=== PATIENT | female | born 1970 | race Caucasian/White ===

== ENCOUNTER → 2020-08-24 10:58 | Outpatient (BNVA) | payer BC, SELFPAY | PROVIDERS: Family Provider Family Medicine; Visit Provider Family Medicine | DX: Z20.828 Contact with and (suspected) exposure to other viral communicable diseases (principal) | CPT/HCPCS: 87635 ==

== ENCOUNTER 2020-10-29 08:16 | Outpatient (CLI) | payer BC, SELFPAY ==
--- NOTE | 2020-10-29 08:21 | MM_ITS ---
WS: [id number] BILATERAL DIGITAL SCREENING MAMMOGRAPHY WITH CAD CLINICAL INFORMATION: SCREENING HISTORY: Screening mammogram. No current complaints. COMPARISON: [id number] TECHNIQUE: Bilateral CC and MLO views. FINDINGS: The breasts are composed of heterogeneous fibroglandular density tissue, which can limit the detectio n of small underlying mass lesions. No suspicious mass, asymmetry, calcifications, or architectural d istortion. No evidence of malignancy. Punctate and lucent centered calcifications. MM/[place] [id number] IMPRESSION: BI-RADS: 2-Benign FOLLOW UP: 1 Year Follow-up Recommend return to annual screening mammography.
== END 2020-10-29 08:17 | disposition home or self-care (01) ==
LOC: RADSHAW 08:18
PROVIDERS: PCP Family Medicine; Visit Provider Family Medicine
DX: Z12.31 Encounter for screening mammogram for malignant neoplasm of breast (principal)
CPT/HCPCS: 77067

== ENCOUNTER 2021-11-02 08:19 | Outpatient (CLI) | payer BC, SELFPAY ==
--- NOTE | 2021-11-02 08:28 | MM_ITS ---
WS: [id number] SCREENING DIGITAL MAMMOGRAM WITH CAD HISTORY: SCREENING COMPARISON: 10/27/2020, 09/11/2019 and 09/04/2018 Bilateral CC and MLO views submitted. Computer aided detection analyzed. Breast composition: The breasts are heterogeneously dense, which may obscure small masses. Asymmetry in the medial RIGHT breast and a posterior location measures 8 mm. This may be the soft tis yuval above the nipple line on the lateral projection. There is also benign calcification in the centra l RIGHT breast. MM/[place] [id number] IMPRESSION: BI-RADS: 0-Incomplete: Need additional imaging evaluation FOLLOW UP: Need Additional Imaging RIGHT breast: Spot compression views (CC and MLO). True ML. Ultrasound to follo w if abnormality persists.
== END 2021-11-02 08:20 | disposition home or self-care (01) ==
PROVIDERS: PCP Family Medicine; Visit Provider Family Medicine
DX: Z12.31 Encounter for screening mammogram for malignant neoplasm of breast (principal)
CPT/HCPCS: 77067

== ENCOUNTER 2021-11-29 11:47 | Outpatient (CLI) | payer BC, SELFPAY ==
--- NOTE | 2021-11-29 11:55 | US_ITS ---
WS: [id number] ADDITIONAL VIEWS RIGHT BREAST RIGHT breast ultrasound, limited HISTORY: ABNORMAL MAMMO COMPARISON: 11/02/2021, 10/29/2020, 09/11/2019 and 09/04/2018 Compression views right CC and MLO projection. True ML also submitted. The asymmetry in the medial RI GHT breast persists with additional views. Asymmetry measures 10 x 5 mm in the mid to posterior depth of the medial RIGHT breast. This is not definitely seen on the lateral projection but may be in the superior half of the breast. RIGHT breast ultrasound, limited. Ultrasound is directed to the medial RIGHT breast. From 12-3 o'clock there is no abnormality identifi ed. There is mildly dense fibroglandular tissue. No shadowing. No solid or cystic changes. US/US breast RT limited* [id number] IMPRESSION: BI-RADS: 3-Probably Benign FOLLOW-UP: 6 Month Follow-up New asymmetry seen in the medial RIGHT breast only on the CC projection. No abn ormality identified by ultrasound or the additional mammographic views. As this is only seen on one view this may be superimposed fibroglandular tissue. Recom mend 6 month diagnostic RIGHT mammogram follow-up and possible ultrasound.
== END 2021-11-29 11:48 | disposition home or self-care (01) ==
LOC: RADSHAW 11:50
PROVIDERS: PCP Family Medicine; Visit Provider Family Medicine
DX: R92.8 Other abnormal and inconclusive findings on diagnostic imaging of breast (principal); N64.89 Other specified disorders of breast
CPT/HCPCS: 76642; 77065

== ENCOUNTER → 2022-03-17 09:32 | Outpatient (BNVA) | payer OTHER, SELFPAY | PROVIDERS: PCP Family Medicine; Visit Provider Family Medicine | DX: D64.9 Anemia, unspecified (principal); E78.5 Hyperlipidemia, unspecified; N19 Unspecified kidney failure | CPT/HCPCS: 80053; 80061; 82306; 82607; 84443; 85025; 86038; 86141 ==

== ENCOUNTER 2022-05-15 15:23 | Outpatient (CLI) | payer OTHER, SELFPAY ==
--- NOTE | 2022-05-15 15:31 | MM_ITS ---
WS: [id number] DIAGNOSTIC RIGHT DIGITAL TOMOSYNTHESIS MAMMOGRAPHY WITH CAD. RIGHT breast ultrasound, limited. HISTORY: 6 MO F/U ABNORMAL MAMMOGRAM COMPARISON: 11/29/2021, 11/02/2021, 10/29/2020 Technique: CC, MLO and ML views. Breast composition: There are scattered areas of fibroglandular density. The asymmetry is again iden tified within the medial RIGHT breast seen best on the spot compression views. This asymmetry is ovoi d measuring 9 mm. Not definitely visualized on the lateral projection. No increase in size since the prior study. There is a benign calcification in the central breast. RIGHT breast ultrasound, limited. No corresponding abnormality is noted within the RIGHT breast along the medial aspect. The entire med ial aspect from 12-6 o'clock is imaged. MM/[place] [id number] IMPRESSION: BI-RADS: 3-Probably Benign FOLLOW UP: 6 Month Follow-up Patient to return for annual mammogram in October 2022. Additional imaging of t he asymmetry in the medial RIGHT breast will be performed at that time.
== END 2022-05-15 15:24 | disposition home or self-care (01) ==
PROVIDERS: PCP Family Medicine; Visit Provider Family Medicine
DX: R92.8 Other abnormal and inconclusive findings on diagnostic imaging of breast (principal)
CPT/HCPCS: 76642; 77061

== ENCOUNTER → 2022-06-01 08:28 | Outpatient (BNVA) | payer SELFPAY | PROVIDERS: PCP Family Medicine; Visit Provider Podiatrist Foot & Ankle Surgery | DX: R20.2 Paresthesia of skin (principal); M79.671 Pain in right foot; M79.672 Pain in left foot | CPT/HCPCS: 73630 ==

== ENCOUNTER 2022-11-14 14:08 | Outpatient (CLI) | payer OTHER, SELFPAY ==
--- NOTE | 2022-11-14 14:30 | MM_ITS ---
WS: [id number] DIAGNOSTIC BILATERAL DIGITAL BREAST TOMOSYNTHESIS MAMMOGRAPHY WITH CAD HISTORY: 6 month follow up COMPARISON: 11/27/2021, 11/02/2021, 10/29/2020 and 09/11/2019 TECHNIQUE: Bilateral craniocaudad, mediolateral oblique, and mediolateral views are submitted with to mosynthesis and SM. Spot compression RIGHT CC and MLO. Computer aided detection utilized. Breast composition: The breasts are heterogeneously dense, which may obscure small masses. Asymmetry in the posterior medial RIGHT breast becomes less apparent. There is no architectural distortion. No discrete mass. MM/[place] [id number] IMPRESSION: BI-RADS: 2-Benign FOLLOW UP: 1 Year Follow-up Return to annual screening mammography.
== END 2022-11-14 14:09 | disposition home or self-care (01) ==
LOC: RAD 14:11
PROVIDERS: PCP Family Medicine; Visit Provider Family Medicine
DX: R92.8 Other abnormal and inconclusive findings on diagnostic imaging of breast (principal)
CPT/HCPCS: 77062; G0279

== ENCOUNTER → 2023-05-31 07:59 | Outpatient (BNVA) | payer OTHER, SELFPAY | PROVIDERS: PCP Family Medicine; Visit Provider Clinical Nurse Specialist Adult Health | DX: R30.0 Dysuria (principal); Z00.01 Encounter for general adult medical examination with abnormal findings; N95.2 Postmenopausal atrophic vaginitis; F32.A Depression, unspecified | CPT/HCPCS: 80053; 80061; 81000; 82040; 82672; 84144; 84270; 84403; 84443; 85025; 87086; 87481; 87512; 87624; 87799 ==

== ENCOUNTER → 2023-07-03 09:18 | Outpatient (BNVA) | payer OTHER, SELFPAY | PROVIDERS: PCP Family Medicine; Visit Provider Family Medicine | DX: Z00.01 Encounter for general adult medical examination with abnormal findings (principal); Z78.0 Asymptomatic menopausal state | CPT/HCPCS: 84403 ==

== ENCOUNTER 2023-08-20 10:30 | Outpatient (RCR) | payer OTHER, SELFPAY | END 2023-09-06 23:59 | disposition home or self-care (01) | LOC: SPT 10:30 | PROVIDERS: PCP Family Medicine; Visit Provider Emergency Medicine | DX: M72.2 Plantar fascial fibromatosis (principal) | CPT/HCPCS: 97035; 97140; 97162 ==

== ENCOUNTER 2023-09-07 06:00 | Outpatient (RCR) | payer OTHER, SELFPAY | END 2023-10-07 23:59 | disposition home or self-care (01) | LOC: SPT 06:00 | PROVIDERS: PCP Family Medicine; Visit Provider Emergency Medicine | DX: M72.2 Plantar fascial fibromatosis (principal) | CPT/HCPCS: 97035; 97110; 97140 ==

== ENCOUNTER 2023-10-08 06:00 | Outpatient (RCR) | payer OTHER, SELFPAY | END 2023-10-11 23:59 | disposition home or self-care (01) | LOC: SPT 06:00 | PROVIDERS: PCP Family Medicine; Visit Provider Emergency Medicine | DX: M72.2 Plantar fascial fibromatosis (principal) | CPT/HCPCS: 97035; 97140 ==

== ENCOUNTER 2023-12-27 13:20 | Outpatient (CLI) | payer OTHER, SELFPAY ==
--- NOTE | 2023-12-27 13:24 | MM_ITS ---
WS: [id number] Bilateral screening 3D tomosynthesis digital mammogram, 12/27/2023 Clinical Data: SCREENING Comparison: 11/14/2022, 05/15/2022, 11/29/2021, 11/02/2021, 10/29/2020, 09/11/2019, 09/04/2018, 08/10/2017, , 08/06/2015, 07/29/2015, 08/21/2013, 07/23/2012, 07/19/2011, 07/18/2010. Findings: The breast parenchymal pattern shows heterogeneous density. No spiculated masses or clustered calcifi cations are seen. There are no secondary signs of carcinoma. Impression: 1. Negative bilateral mammogram unchanged. 2. Recommend annual screening mammograms. MM/[place] [id number] BIRADS: 1-Negative FOLLOW UP: 1 Year Follow-up The CAD brick paving checker was used.
== END 2023-12-27 13:21 | disposition home or self-care (01) ==
LOC: RAD 13:20
PROVIDERS: PCP Family Medicine; Visit Provider Family Medicine
DX: Z12.31 Encounter for screening mammogram for malignant neoplasm of breast (principal)
CPT/HCPCS: 77063; 77067

== ENCOUNTER 2024-12-29 08:44 | Outpatient (CLI) | payer OTHER, SELFPAY ==
--- NOTE | 2024-12-29 08:48 | MM_ITS ---
WS: [id number] BILATERAL SCREENING DIGITAL TOMOSYNTHESIS MAMMOGRAM WITH CAD HISTORY: SCREENING COMPARISON: 12/27/2023, 11/14/2022 and 05/15/2022 Bilateral CC and MLO views with tomosynthesis and synthetic mammography submitted. Computer aided detection analyzed. Breast composition: The breasts are heterogeneously dense, which may obscure small masses. No suspicious masses, microcalcifications or architectural distortion. Benign calcifications in each breast. MM/MM Psychiatric tomosynthesis [id number] IMPRESSION: BI-RADS: 2 - Benign FOLLOW UP: 1 Year Follow-up
== END 2024-12-29 08:45 | disposition home or self-care (01) ==
PROVIDERS: PCP Family Medicine; Visit Provider Family Medicine
DX: Z12.31 Encounter for screening mammogram for malignant neoplasm of breast (principal); R92.333 Mammographic heterogeneous density, bilateral breasts; R92.1 Mammographic calcification found on diagnostic imaging of breast
CPT/HCPCS: 77063; 77067

== ENCOUNTER → 2025-08-06 10:39 | Outpatient (BNVA) | payer OTHER, SELFPAY | PROVIDERS: PCP Family Medicine; Visit Provider Clinical Nurse Specialist Adult Health | DX: R82.998 Other abnormal findings in urine (principal); Z78.0 Asymptomatic menopausal state | CPT/HCPCS: 80053; 80061; 81000; 82306; 82607; 84443; 85025; 87086 ==

== ENCOUNTER → 2025-09-18 08:22 | Outpatient (BNVA) | payer SELFPAY | PROVIDERS: PCP Family Medicine; Visit Provider Family Medicine | DX: N39.0 Urinary tract infection, site not specified (principal) | CPT/HCPCS: 81000; 87086 ==